=== PATIENT | female | born 1970 | race Caucasian/White ===

== ENCOUNTER 2016-09-05 06:59 | Day surgery (SDC) | payer OTHER ==
[2016-09-05] VITALS (8 sets, daily range): BP systolic 99–144; BP diastolic 55–84; PULSE 63–72; RESP 16–20; TEMP 97.8–98.4; O2SAT 64–97
[~2016-09-05] VITALS: Ht 162.6 cm; Wt 97.7 kg
[~2016-09-05 06:59] MED LIST: LORT5TAB PO; MORPHINE SULFATE 4 MG/ML INJ ONE; OMEP20CA5 PO; fentaNYL CITRATE 250 MCG/5 ML AMP ONE
[2016-09-05] MEDS ORDERED: LIDOCAINE 1%/EPINEPHrine 1:100,000 SOLN 20 ML VIAL ONE (07:23)
[2016-09-05] MEDS ORDERED: SERT-129 PO (07:46)
[2016-09-05] MEDS ORDERED: ATOR40TA16 PO (07:46)
[2016-09-05] MEDS ORDERED: GLIM1TAB PO (07:46)
[2016-09-05] MEDS ORDERED: OMEP20TA PO (07:46)
[2016-09-05] MEDS ORDERED: METF500T PO (07:46)
[2016-09-05] MEDS ORDERED: SODIUM CHLOR 0.9% 1000 ML IV SCH (08:00)
[2016-09-05] MEDS ORDERED: fentaNYL CITRATE 250 MCG/5 ML AMP ONE (08:08)
[2016-09-05] MEDS ORDERED: MIDAZOLAM HCL 5 MG/5 ML VIAL ONE (08:09)
[2016-09-05] MEDS ORDERED: HYDROmorphone HCL 2 MG TAB PO PRN (10:00)
--- NOTE | 2016-09-05 12:59 | RADRPT ---
EXAM DATE/TIME: 09/05/2016 08:17 [facility] COMPARISON: No previous studies available for comparison. INDICATIONS : Elevated liver enzymes. SEDATION TIME: 15 minutes BIOPSY SITE: Right MEDICATION(S): 1.) 3 mg midazolam (Versed) IV 2.) 150 mcg fentanyl (Sublimaze) IV DEVICE(S): 1.) 18 gauge Temno core biopsy needle MEDICAL HISTORY : Gastroesophageal reflux disease. SURGICAL HISTORY : None. ENCOUNTER: Initial ACUITY: 1 day PAIN SCORE: 0/10 LOCATION: Right A total of two core specimen(s) were obtained and sent to the laboratory for pathologic evaluation. PROCEDURE: 1. CT guided liver biopsy. 2. Conscious sedation with continuous EKG and oximetry monitoring. 3. EKG and oximetry remained stable throughout the procedure. Prior to the procedure informed consent was obtained. Any appropriate prior imaging studies were rev iewed. Using automated exposure control and adjustment of the mA and/or kV according to patient size, radiat ion dose was kept as low as reasonably achievable to obtain optimal diagnostic quality images. The site was prepped in a sterile fashion. Full sterile technique was used, including cap, mask, daniel rile gloves and gown and a large sterile sheet. Hand hygiene and 2% chlorhexidine and/or betadine/al cohol prep was utilized per protocol for cutaneous antisepsis. The skin and subcutaneous tissues wer e infiltrated with local anesthetic solution. With CT guidance the left lobe of the liver was localized. Biopsy was performed using the prescribed needle as above. Adequate hemostasis was obtained with compression at the puncture site. Follow-up CT scan reveals no hemorrhage. There is moderate hepatic steatosis. The patient tolerated the procedure well and there were no complications. The patient was returned to the Radiology Outpatient Unit in stable condition. CONCLUSION: Uncomplicated CT guided biopsy of the liver. Imaging document steatosis. Ortega Rodarte MD on September 05, 2016 at 12:57 Board Certified Radiologist. This report was verified electronically.
== END 2016-09-05 12:50 | disposition home or self-care (01) ==
LOC: HRAD 06:59 → HRIP 07:00 → HRAD 12:50
DX: R74.8 Abnormal levels of other serum enzymes (principal); K75.81 Nonalcoholic steatohepatitis (NASH); K21.9 Gastro-esophageal reflux disease without esophagitis
CPT/HCPCS: 47000; 77012; 88307; 88313; J2250; J3010; J7030; J2270

== ENCOUNTER 2017-10-03 15:54 | Emergency (ER) | payer OTHER ==
[~2017-10-03] VITALS: Ht 162.6 cm; Wt 100.0 kg
[~2017-10-03 15:54] MED LIST changes: +ATOR40TA16 PO; +GLIM1TAB PO; -LORT5TAB PO; +METF500T PO; -MORPHINE SULFATE 4 MG/ML INJ ONE; +OMEP20TA93 PO; +SERT-129 PO; -fentaNYL CITRATE 250 MCG/5 ML AMP ONE
[2017-10-03 15:59] VITALS: BP 151/72; PULSE 96; RESP 20; TEMP 98.4; O2SAT 97
--- NOTE | 2017-10-03 16:38 | PD ---
HPI Chief Complaint: Fall Time Seen by Provider: 16:20 Travel History International Travel<30 days: No Contact w/Intl Traveler<30days: No Traveled to known affect area: No History of Present Illness HPI This patient complains of pain in the right buttock area. 30 minutes ago she suffered a fall. She fell approximately 5 foot from a ladder that collapsed under her. She hit the ground with her right buttock and then flipped over her friend who also fell and struck her head. She has no headache or neck pain. She has no LOC. She does not have any chest or abdominal or back pain. Her complaint is right buttock pain and right upper leg pain. Her right calf feels sore but she has no pain or tenderness in the right tibia ankle or foot. Symptom severity is moderate to severe. Pain is worse with movement. No alleviating factors. She takes no blood thinners. PFSH Past Medical History Cancer: No Cardiovascular Problems: No Diabetes: Yes Endocrine: No Glaucoma: No Genitourinary: No Hepatitis: No Hiatal Hernia: No Hypertension: Yes Immune Disorder: No Musculoskeletal: No Neurologic: No Psychiatric: No Reproductive: No Respiratory: No Thyroid Disease: No Past Surgical History Abdominal Surgery: No Cardiac Surgery: No Ear Surgery: No Endocrine Surgery: No Eye Surgery: No Genitourinary Surgery: No Gynecologic Surgery: No Oral Surgery: Yes (WISDOM TEETH EXTRACTION) Pacemaker: No Thoracic Surgery: No Other Surgery: Yes Social History Alcohol Use: No Tobacco Use: No Substance Use: No Allergies-Medications (Allergen,Severity, Reaction): Coded Allergies: No Known Allergies (Verified , 09/05/16) Reported Meds & Prescriptions Reported Meds & Active Scripts Active Reported Glimepiride 1 Mg Tab 1 Mg PO DAILY Take with breakfast or first main meal Atorvastatin (Atorvastatin Calcium) 40 Mg Tab 40 Mg PO HS Metformin (Metformin HCl) 500 Mg Tab 500 Mg PO BIDPC With meals Sertraline (Sertraline HCl) 100 Mg Tab 100 Mg PO DAILY Omeprazole 20 Mg Tab 20 Mg PO DAILY Prilosec 20 mg (Omeprazole) 20 Mg Capcr 20 Mg PO DAILY Review of Systems General / Constitutional: No: Fever Eyes: No: Visual changes HENT: No: Headaches Cardiovascular: No: Chest Pain or Discomfort Respiratory: No: Shortness of Breath Gastrointestinal: No: Abdominal Pain Genitourinary: No: Dysuria Musculoskeletal: Positive: Myalgias, Arthralgias, Limited ROM, Pain Skin: No Rash Neurologic: No: Weakness Psychiatric: No: Depression Endocrine: No: Polydipsia Hematologic/Lymphatic: No: Easy Bruising Physical Exam Narrative GENERAL: Well-nourished, well-developed patient with pain in the right buttock and right leg. SKIN: Focused skin assessment reveals no rash and nodules. Skin is Warm and dry. HEAD: Abrasion to the right forehead. Normocephalic. EYES: Pupils equal and round. No scleral icterus. No injection or drainage. ENT: No nasal bleeding or discharge. Mucous membranes pink and moist. NECK: Trachea midline. No JVD. No midline tenderness CARDIOVASCULAR: Regular rate and rhythm. No murmur appreciated. RESPIRATORY: No accessory muscle use. Clear to auscultation. Breath sounds equal bilaterally. GASTROINTESTINAL: Abdomen soft, non-tender, nondistended. Hepatic and splenic margins not palpable. MUSCULOSKELETAL: She has some tenderness when palpating the right buttock and right proximal thigh. No bruising or obvious deformities. No clubbing. No cyanosis. No edema. No tibial tenderness. There is a bit of right calf tenderness. No midline tenderness of the back NEUROLOGICAL: Awake and alert. No obvious cranial nerve deficits. Motor grossly within normal limits. Normal speech. PSYCHIATRIC: Appropriate mood and affect; insight and judgment normal. Data Data Last Documented VS Vital Signs Date Time Temp Pulse Resp B/P (MAP) Pulse Ox O2 Delivery O2 Flow Rate FiO2 10/03/17 15:59 98.4 96 20 151/72 (98) 97 Orders Orders Pelvis, Ap Only (Routine) (10/03/17 ) Femur (Ap & Lat/2vws) (10/03/17 ) Morphine Inj (Morphine Inj) (10/03/17 17:00) Ondansetron Odt (Zofran Odt) (10/03/17 17:00) Ct Pelvis W/O Iv Contrast (10/03/17 ) Ct Hip W/O Contrast (10/03/17 ) Complete Blood Count With Diff (10/03/17 16:58) Basic Metabolic Panel (Bmp) (10/03/17 16:58) Iv Access Insert/Monitor (10/03/17 16:58) [facility] Medical Decision Making Medical Screen Exam Complete: Yes Emergency Medical Condition: Yes Medical Record Reviewed: Yes Differential Diagnosis Pelvic fracture, femur fracture, contusion Narrative Course I have reviewed the patient's electronic medical record. I gave her injection of morphine for symptom relief X-rays ordered to evaluate injury We had a lengthy discussion regarding pros and cons of brain imaging. There are no red flags to suggest emergent imaging is indicated. She has no headache or LOC and is neurologically intact without blood thinner therapy. She would like to hold off on that imaging which is reasonable. I reviewed the x-rays. I do not see any acute fracture but she behaves as if there could be fracture of pelvis or possibly occult hip I have ordered CT imaging of both. Case will be checked out to oncoming physician to assist with disposition. Would need a trial of ambulation if imaging is negative Stephane Montgomery MD October 03, 2017 16:38
[2017-10-03] MEDS ORDERED: METF850T PO (16:59)
[2017-10-03] MEDS ORDERED: FENO1TAB46 PO (16:59)
[2017-10-03] MEDS ORDERED: DULA10IN SQ (16:59)
[2017-10-03] MEDS ORDERED: LISI10TA3 PO (16:59)
[2017-10-03] MEDS ORDERED: MORPHINE SULFATE 4 MG/ML INJ IM ONE (17:00)
[2017-10-03] MEDS ORDERED: ONDANSETRON ODT 4 MG TAB PO ONE (17:00)
--- NOTE | 2017-10-03 17:00 | RADRPT ---
EXAM DATE/TIME: 10/03/2017 16:42 [facility] COMPARISON: No previous studies available for comparison. INDICATIONS : Posterior knee pain after fall from ladder. MEDICAL HISTORY : None. SURGICAL HISTORY : None. ENCOUNTER: Initial ACUITY: 1 day PAIN SCORE: 10/10 LOCATION: Right femur. FINDINGS: Two view examination of the right femur demonstrates no evidence of fracture or dislocation. Bony mi neralization is normal. Degenerative changes about the superior acetabular margin. The soft tissue s tructures are intact. CONCLUSION: Degenerative changes, fracture not appreciated. Saeed Gallardo MD FACR on October 03, 2017 at 16:57 Board Certified Radiologist. This report was verified electronically.
--- NOTE | 2017-10-03 17:04 | RADRPT ---
EXAM DATE/TIME: 10/03/2017 16:41 [facility] COMPARISON: No previous studies available for comparison. INDICATIONS : Right sided pain after fall from ladder. MEDICAL HISTORY : None. SURGICAL HISTORY : None. ENCOUNTER: Initial ACUITY: 1 day PAIN SCORE: 10/10 LOCATION: Pelvis. FINDINGS: Degenerative changes superior acetabular margin. Anatomic alignment. No fracture. SI joints are no rmal. The soft tissues are intact. CONCLUSION: Degenerative changes right hip, no fracture Saeed Gallardo MD FACR on October 03, 2017 at 17:01 Board Certified Radiologist. This report was verified electronically.
[2017-10-03] MEDS ORDERED: MORPHINE SULFATE 8 MG/ML INJ IV PUSH ONE (17:30)
[2017-10-03 17:55] LABS: AUTOMATED NEUTROPHIL # 6.4 TH/MM3 (1.8-7.7); BASOPHIL # 0.1 TH/MM3 (0-0.2); BASOPHIL % 0.5 % (0.0-2.0); EOSINOPHIL # 0.1 TH/MM3 (0-0.4); EOSINOPHIL % 0.9 % (0.0-4.0); HEMATOCRIT 39.1 % (35.0-46.0); HEMOGLOBIN 13.2 GM/DL (11.6-15.3); LYMPH % 35.1 % (9.0-44.0); LYMPHOCYTE # 3.9 TH/MM3 (1.0-4.8); MEAN CELL VOLUME 85.3 FL (80.0-100.0); MEAN CORPUSCULAR HEMOGLOBIN 28.8 PG (27.0-34.0); MEAN CORPUSCULAR HGB CONC 33.7 % (32.0-36.0); MEAN PLATELET VOLUME 9.4 FL (7.0-11.0); MONO % 6.3 % (0.0-8.0); MONOCYTE # 0.7 TH/MM3 (0-0.9); NEUT % 57.2 % (16.0-70.0); PLATELET COUNT 264 TH/MM3 (150-450); RED BLOOD COUNT 4.58 MIL/MM3 (4.00-5.30); RED CELL DISTRIBUTION WIDTH 13.1 % (11.6-17.2); WHITE BLOOD COUNT 11.2 TH/MM3 (4.0-11.0)
--- NOTE | 2017-10-03 18:11 | RADRPT ---
EXAM DATE/TIME: 10/03/2017 17:48 [facility] COMPARISON: No previous studies available for comparison. INDICATIONS : Trauma; patient fell from a ladder. RADIATION DOSE: 56.57 CTDIvol (mGy) ; Patient body habitus MEDICAL HISTORY : Hypertension. Gastroesophageal reflux disease. Diabetes mellitus type 2. SURGICAL HISTORY : None. ENCOUNTER: Initial ACUITY: 1 day PAIN SCALE: 7/10 LOCATION: Right hip TECHNIQUE: Volumetric scanning of the hip was performed. Using automated exposure control and adjustment of the mA and/or kV according to patient size, radiation dose was kept as low as reasonably achievable to o btain optimal diagnostic quality images. DICOM format image data is available electronically for rev iew and comparison. FINDINGS: BONES: No evidence of fracture. Alignment is within normal limits. JOINTS: There is some primary degenerative changes at the joint space with some narrowing of the joint space along the superior margin.. SOFT TISSUES: Soft tissues are unremarkable. CONCLUSION: 1. No acute fracture or joint dislocation. 2. Primary degenerative changes at the hip joint. Jose Michaels MD on October 03, 2017 at 18:07 Board Certified Radiologist. This report was verified electronically.
[2017-10-03 18:19] LABS: CALCIUM 8.8 MG/DL (8.5-10.1); CREATININE 0.88 MG/DL (0.50-1.00)
[2017-10-03] MEDS ORDERED: KETOROLAC TROMETHAMINE 30 MG/ML (IVP) VIAL IV PUSH ONE (18:45)
--- NOTE | 2017-10-03 18:49 | PD ---
Physical Exam Date Seen by Provider: October 03, 2017 Time Seen by Provider: 18:48 Narrative 47-year-old female came to the emergency room for right hip pain radiating down the back of her thigh after a fall from a 5 foot ladder. She was seen by the previous ER physician. Please refer to his history and physical for further details. X-ray of the hip and femur was negative for any fracture. Patient was given pain medication and a CAT scan was ordered. Signout was to follow-up on the CT scan. CT scan of the pelvis and hip is negative for any fracture. Patient says that she is unable to get up and walk because every time she moves she feels a sharp shooting pain coming down from her right buttock and the back of her thigh down to her knee. I have ordered Toradol. Crutches will be given to see if she can ambulate. If she is unable to she might require to be admitted for pain control. Data Data Last Documented VS Vital Signs Date Time Temp Pulse Resp B/P (MAP) Pulse Ox O2 Delivery O2 Flow Rate FiO2 10/03/17 18:58 162/78 (106) 10/03/17 15:59 98.4 96 20 97 Orders Orders Pelvis, Ap Only (Routine) (10/03/17 ) Femur (Ap & Lat/2vws) (10/03/17 ) Morphine Inj (Morphine Inj) (10/03/17 17:00) Ondansetron Odt (Zofran Odt) (10/03/17 17:00) Ct Hip W/O Contrast (10/03/17 ) Complete Blood Count With Diff (10/03/17 16:58) Basic Metabolic Panel (Bmp) (10/03/17 16:58) Iv Access Insert/Monitor (10/03/17 16:58) Morphine Inj (Morphine Inj) (10/03/17 17:30) Ketorolac Inj (Toradol Inj) (10/03/17 18:45) Ed Discharge Order (10/03/17 19:56) Labs Laboratory Tests Test 10/03/17 17:20 White Blood Count 11.2 TH/MM3 Red Blood Count 4.58 MIL/MM3 Hemoglobin 13.2 GM/DL Hematocrit 39.1 % Mean Corpuscular Volume 85.3 FL Mean Corpuscular Hemoglobin 28.8 PG Mean Corpuscular Hemoglobin Concent 33.7 % Red Cell Distribution Width 13.1 % Platelet Count 264 TH/MM3 Mean Platelet Volume 9.4 FL Neutrophils (%) (Auto) 57.2 % Lymphocytes (%) (Auto) 35.1 % Monocytes (%) (Auto) 6.3 % Eosinophils (%) (Auto) 0.9 % Basophils (%) (Auto) 0.5 % Neutrophils # (Auto) 6.4 TH/MM3 Lymphocytes # (Auto) 3.9 TH/MM3 Monocytes # (Auto) 0.7 TH/MM3 Eosinophils # (Auto) 0.1 TH/MM3 Basophils # (Auto) 0.1 TH/MM3 CBC Comment DIFF FINAL Differential Comment Blood Urea Nitrogen 13 MG/DL Creatinine 0.88 MG/DL Random Glucose 221 MG/DL Calcium Level 8.8 MG/DL Sodium Level 138 MEQ/L Potassium Level 3.6 MEQ/L Chloride Level 104 MEQ/L Carbon Dioxide Level 25.0 MEQ/L Anion Gap 9 MEQ/L Estimat Glomerular Filtration Rate 69 ML/MIN MDM Supervised Visit with [facility]: No Narrative Course 7:58 PM patient has been able to ambulate with a walker although still in pain. She wants to go home and follow-up with her primary care which is fine with me. Patient will be discharged home on prescriptions. Diagnosis Primary Impression: Musculoskeletal pain Additional Impression: Right hamstring injury Qualified Codes: S76.301A - Unspecified injury of muscle, fascia and tendon of the posterior muscle group at thigh level, right thigh, initial encounter Referrals: Primary Care Physician 2 days Additional Instruction: Take the medication as per the prescription direction. Follow-up with your primary care if the symptoms persists to get an MRI as an outpatient. Return to the ER if the condition worsens any other new concerns. Use crutches for ambulation. Med/Other Pt SpecificInfo: Prescription(s) given Scripts Hydrocodone-Acetaminophen (Hydrocodone-Acetaminophen) 5-325 mg Tab 1 TAB PO Q6H Y for PAIN, #12 TAB 0 Refills Prov: Bakari Burris MD 10/03/17 Ibuprofen (Ibuprofen) 600 Mg Tab 600 MG PO Q6H Y for Pain/Inflammation, #40 TAB 0 Refills Prov: Bakari Burris MD 10/03/17 Cyclobenzaprine (Flexeril) 5 Mg Tab 5 MG PO TID for Muscle Spasm, #15 TAB 0 Refills Prov: Bakari Burris MD 10/03/17 Disposition: 01 DISCHARGE HOME Condition: Stable Bakari Burris MD October 03, 2017 18:49
[2017-10-03 18:58] VITALS: BP 162/78
[2017-10-03] MEDS ORDERED: HYDR-3516 PO (20:02)
[2017-10-03] MEDS ORDERED: CYCL5TAB PO (20:02)
[2017-10-03] MEDS ORDERED: IBUP-232 PO (20:02)
== END 2017-10-03 20:36 | disposition home or self-care (01) ==
LOC: NEPD 15:54
DX: S76.301A Unspecified injury of muscle, fascia and tendon of the posterior muscle group at thigh level, right thigh, initial encounter (principal); M25.551 Pain in right hip; M79.651 Pain in right thigh; E11.9 Type 2 diabetes mellitus without complications; I10 Essential (primary) hypertension; W11.XXXA Fall on and from ladder, initial encounter
CPT/HCPCS: 72170; 73552; 73700; 80048; 85025; 96374; 96375; 99285; J1885; J2270